=== PATIENT | male | born 1945 | race American Indian/Alaskan Native ===

== ENCOUNTER 2022-12-19 14:23 | Outpatient (CLI) | payer OTHER ==
[~2022-12-19 14:23] MED LIST: ASPI-611 PO; DOCU100C40 PO; HYDR-3972 PO; LEVO125T PO; LOP25T PO; MULT-1179 PO; SIMV-341 PO
== END 2022-12-19 23:59 | disposition home or self-care (01) ==
LOC: VAS 14:23
PROVIDERS: ATTEND Physician Assistant
DX: M79.661 Pain in right lower leg (principal); M79.662 Pain in left lower leg; I73.9 Peripheral vascular disease, unspecified
CPT/HCPCS: 93922